=== PATIENT | female | born 1955 | race Two or more races ===

== ENCOUNTER 2020-09-04 06:42 | Outpatient (CLI) | payer OTHER ==
[~2020-09-04] VITALS: Ht 157.5 cm; Wt 64.9 kg
[2020-09-04] MEDS ORDERED: METFORMIN HCL500 M3 PO (11:25)
[2020-09-04] MEDS ORDERED: PRILOSEC OTC20 MG PO (11:26)
== END 2020-09-04 06:44 | disposition home or self-care (01) ==
LOC: EKG 06:42 → SURH 09-10 07:00 → EDSTATUS 09-10 09:00 → EKG 10-09 06:42
PROVIDERS: ATTEND Colon & Rectal Surgery
DX: U07.1 COVID-19 (principal); K57.32 Diverticulitis of large intestine without perforation or abscess without bleeding; K92.1 Melena

== ENCOUNTER 2020-11-19 11:45 | Inpatient (IN) | payer OTHER ==
[~2020-11-19] VITALS: Ht 152.4 cm; Wt 66.7 kg
[~2020-11-19 11:45] MED LIST: METFORMIN HCL500 M3 PO; PRILOSEC OTC20 MG PO
[2020-11-19] MEDS ORDERED: SIMVASTATIN5 MG PO (13:58)
[2020-11-19] MEDS ORDERED: ZESTRIL2.5 MG PO (13:58)
[2020-11-26] MEDS ORDERED: ABATINEX680 MG (14:08)
== END 2020-12-06 16:02 | disposition home or self-care (01) | DRG 330 ==
LOC: SURH 11-26 06:42 → O/R 11-26 06:42 → SURH 11-26 10:15
PROVIDERS: ADMIT Colon & Rectal Surgery; ATTEND Colon & Rectal Surgery
PROC: 0DJD8ZZ Inspection of Lower Intestinal Tract, Via Natural or Artificial Opening Endoscopic (ICD-10-PCS; 2020-11-26)
PROC: 0D9770Z Drainage of Stomach, Pylorus with Drainage Device, Via Natural or Artificial Opening (ICD-10-PCS; 2020-11-26)
PROC: 0DBN4ZZ Excision of Sigmoid Colon, Percutaneous Endoscopic Approach (ICD-10-PCS; principal; 2020-11-26 10:15)
PROC: 02HV33Z Insertion of Infusion Device into Superior Vena Cava, Percutaneous Approach (ICD-10-PCS; 2020-11-29)
PROC: 3E0436Z Introduction of Nutritional Substance into Central Vein, Percutaneous Approach (ICD-10-PCS; 2020-11-29)
DX: K57.32 Diverticulitis of large intestine without perforation or abscess without bleeding (principal); K56.7 Ileus, unspecified; E87.6 Hypokalemia; Y83.8 Other surgical procedures as the cause of abnormal reaction of the patient, or of later complication, without mention of misadventure at the time of the procedure; E11.9 Type 2 diabetes mellitus without complications; Z79.4 Long term (current) use of insulin